=== PATIENT | female | born 1960 | race Caucasian/White ===

== ENCOUNTER 2017-02-06 22:55 | Emergency (ER) | payer MEDICAID ==
[~2017-02-06] VITALS: Ht 165.1 cm; Wt 57.6 kg
[2017-02-06] MEDS ORDERED: SODIUM CHLORIDE 0.9% 1,000ML IVBOLUS ONE (23:30)
[2017-02-06 23:38] LABS: HEMOGLOBIN 16.1 g/dL (11.7-16.4)
[2017-02-06 23:50] LABS: BLOOD UREA NITROGEN 17 mg/dL (7-18)
[2017-02-06 23:55] LABS: IS PT STATUS REG ER OR PRE ER? YES
[2017-02-07 01:10] VITALS: BP 134/78
== END 2017-02-07 01:23 | disposition home or self-care (01) ==
LOC: ED 23:59
DX: J44.1 Chronic obstructive pulmonary disease with (acute) exacerbation (principal); R06.00 Dyspnea, unspecified; F10.129 Alcohol abuse with intoxication, unspecified
CPT/HCPCS: 36415; 71010; 80048; 80307; 82040; 83880; 84484; 85025; 93005; 96360; 96361; 99285; J7030

== ENCOUNTER 2018-02-13 12:06 | Emergency (ER) | payer MEDICAID ==
[~2018-02-13] VITALS: Ht 165.1 cm; Wt 54.4 kg
[2018-02-13 12:42] LABS: MEAN CORPUSCULAR HGB CONC 34.6 g/dL (32.4-35.8); MEAN CORPUSCULAR VOLUME 118.5 fL (80-100); PLATELET COUNT 234 x10^3/uL (130-400); RED BLOOD COUNT 2.65 x10^6/uL (3.82-5.3); RED CELL DISTRIBUTION WIDTH 15.9 % (9.6-15.2)
[2018-02-13 12:48] LABS: MD YES
[2018-02-13 12:49] LABS: ALANINE AMINOTRANSFERASE 54 U/L (12-78); ALBUMIN 2.1 g/dL (3.4-5.0); ANION GAP 9 mmol/L (5-15); CHLORIDE 92 mmol/L (98-107); CREATININE 0.82 mg/dL (0.55-1.02)
[2018-02-13 12:52] LABS: TROPONIN I < 0.015 ng/mL (0.000-0.045)
[2018-02-13 12:54] LABS: ALKALINE PHOSPHATASE 217 U/L (45-117); TOTAL PROTEIN 7.1 g/dL (6.4-8.2)
[2018-02-13 13:06] LABS: BAND#(MANUAL) 3.42 x10^3/uL; BANDS%(MANUAL) 18 % (0-7); BASOS#(MANUAL) 0.19 x10^3/uL (0-0.1); BASOS% (MANUAL) 1 % (0-1); LYMPH#(MANUAL) 2.85 x10^3/uL (1-3.4); LYMPHS% (MANUAL) 15 % (22-44); MONOS#(MANUAL) 1.14 x10^3/uL (0.3-2.7); MONOS% (MANUAL) 6 % (2-9); SEGS% (MANUAL) 60 % (42-75)
[2018-02-13 13:10] LABS: <PLATELET ESTIMATE> ADEQUATE; <PLT MORPHOLOGY> NORMAL PLT MORPH; ANISOCYTOSIS 1+; POLYCHROMASIA 1+
[2018-02-13] MEDS ORDERED: PREN-3 PO (13:11)
[2018-02-13] MEDS ORDERED: ERGO500017 PO (13:11)
[2018-02-13 13:47] LABS: MICROSCOPIC INDICATED
[2018-02-13 13:48] LABS: CULTURE INDICATED? YES
[2018-02-13 14:07] LABS: INTERNATIONAL NORMALIZED RATIO 1.33 (0.93-1.1); PROTHROMBIN TIME 13.6 Seconds (9.6-11.5)
[2018-02-13 15:37] VITALS: BP 90/52
[2018-02-13] MEDS ORDERED: OMNIPAQUE 350 MG/ML, 100ML BOTTLE ONE (16:11)
[2018-02-13] MEDS ORDERED: SODIUM CHLORIDE 0.9% 1,000 ML IV ONE (17:24)
[2018-02-13] MEDS ORDERED: SODIUM CHLORIDE FLUSH 10ML SYR IVF PRN (17:30)
[2018-02-13] MEDS ORDERED: CEFTRIAXONE PMX 1GM/50ML 50 ML IVPB ONE (17:30)
== END 2018-02-13 17:39 | disposition home or self-care (01) ==
LOC: ED 16:20 → EDIP 17:24 → UNDOADMIN 17:24 → ED 17:39
DX: K70.31 Alcoholic cirrhosis of liver with ascites (principal); N30.90 Cystitis, unspecified without hematuria; E87.1 Hypo-osmolality and hyponatremia; J44.9 Chronic obstructive pulmonary disease, unspecified; R53.1 Weakness
CPT/HCPCS: 36415; 71046; 74177; 76700; 80053; 81001; 83605; 83690; 83880; 84484; 85025; 85610; 85730; 87040; 87077; 87086; 93005; 99285; Q9967; 87186

== ENCOUNTER 2018-02-26 10:43 | Emergency (ER) | payer MEDICAID ==
[~2018-02-26] VITALS: Ht 165.1 cm; Wt 57.8 kg
[~2018-02-26 10:43] MED LIST: ERGO500017 PO; PREN-3 PO
[2018-02-26] MEDS ORDERED: SODIUM CHLORIDE FLUSH 10ML SYR IVF ONE (12:00)
[2018-02-26 12:09] LABS: CULTURE INDICATED? YES; MICROSCOPIC INDICATED
[2018-02-26 12:17] LABS: MEAN CORPUSCULAR HEMOGLOBIN 38.9 pg (27.0-34.8); MEAN CORPUSCULAR HGB CONC 33.5 g/dL (32.4-35.8); MEAN CORPUSCULAR VOLUME 116.2 fL (80-100); MEAN PLATELET VOLUME 7.4 fL (7.4-10.4); PLATELET COUNT 296 x10^3/uL (130-400); RED BLOOD COUNT 2.83 x10^6/uL (3.82-5.3); RED CELL DISTRIBUTION WIDTH 14.2 % (9.6-15.2)
[2018-02-26 12:23] LABS: INTERNATIONAL NORMALIZED RATIO 1.31 (0.93-1.1); PROTHROMBIN TIME 13.4 Seconds (9.6-11.5)
[2018-02-26 12:30] LABS: ALANINE AMINOTRANSFERASE 37 U/L (12-78); ALBUMIN 2.2 g/dL (3.4-5.0); ANION GAP 8 mmol/L (5-15); CALCIUM 8.5 mg/dL (8.5-10.1); CHLORIDE 103 mmol/L (98-107); CREATININE 0.77 mg/dL (0.55-1.02)
[2018-02-26 12:32] LABS: ALKALINE PHOSPHATASE 184 U/L (45-117); BILIRUBIN,TOTAL 2.4 mg/dL (0.2-1.0); TOTAL PROTEIN 7.4 g/dL (6.4-8.2)
[2018-02-26] MEDS ORDERED: LIDOCAINE-MPF 1%, 5ML ONE (13:14)
[2018-02-26 13:15] LABS: MD YES
[2018-02-26 13:19] LABS: <PLATELET ESTIMATE> ADEQUATE; <PLT MORPHOLOGY> NORMAL PLT MORPH; ANISOCYTOSIS 1+; BAND#(MANUAL) 0.44 x10^3/uL; BANDS%(MANUAL) 2 % (0-7); BASOS#(MANUAL) 0.44 x10^3/uL (0-0.1); BASOS% (MANUAL) 2 % (0-1); LYMPH#(MANUAL) 2.65 x10^3/uL (1-3.4); LYMPHS% (MANUAL) 12 % (22-44); MONOS#(MANUAL) 0.44 x10^3/uL (0.3-2.7); MONOS% (MANUAL) 2 % (2-9); SEG#(MANUAL) 18.12 x10^3/uL (1.8-6.8); SEGS% (MANUAL) 82 % (42-75); TOXIC GRAN 1+
[2018-02-26] MEDS ORDERED: CEFTRIAXONE PMX 1GM/50ML 50 ML ONE (14:14)
[2018-02-26] MEDS ORDERED: SODIUM CHLORIDE 0.9% 1,000ML IVBOLUS ONE (14:30)
[2018-02-26] MEDS ORDERED: CEFTRIAXONE PMX 1GM/50ML 50 ML IVPB ONE (14:30)
[2018-02-26 15:10] VITALS: BP 99/66
[2018-02-26 15:43] LABS: CELLS COUNTED 88
== END 2018-02-26 15:13 | disposition left against medical advice (07) ==
LOC: ED 14:08
DX: R18.8 Other ascites (principal); D72.829 Elevated white blood cell count, unspecified; R65.10 Systemic inflammatory response syndrome (SIRS) of non-infectious origin without acute organ dysfunction; K83.1 Obstruction of bile duct; D68.9 Coagulation defect, unspecified; J44.9 Chronic obstructive pulmonary disease, unspecified; G89.29 Other chronic pain; F17.200 Nicotine dependence, unspecified, uncomplicated
CPT/HCPCS: 36415; 49083; 80053; 81001; 82042; 82140; 83615; 83690; 85025; 85610; 87040; 87070; 87086; 87205; 88112; 88305; 89051; 96365; 99285; J0696; J7030

== ENCOUNTER 2018-03-05 10:05 | Inpatient (IN) | payer MEDICAID ==
[~2018-03-05] VITALS: Ht 165.1 cm; Wt 63.5 kg
[2018-03-05] MEDS ORDERED: SODIUM CHLORIDE FLUSH 10ML SYR IVF ONE (10:30)
[2018-03-05 10:47] LABS: MEAN CORPUSCULAR HEMOGLOBIN 37.7 pg (27.0-34.8); MEAN CORPUSCULAR HGB CONC 33.3 g/dL (32.4-35.8); MEAN CORPUSCULAR VOLUME 113.3 fL (80-100); PLATELET COUNT 343 x10^3/uL (130-400); RED BLOOD COUNT 3.24 x10^6/uL (3.82-5.3); RED CELL DISTRIBUTION WIDTH 14.7 % (9.6-15.2)
[2018-03-05 11:00] LABS: ALANINE AMINOTRANSFERASE 38 U/L (12-78); ALBUMIN 2.3 g/dL (3.4-5.0); ANION GAP 10 mmol/L (5-15); CALCIUM 8.1 mg/dL (8.5-10.1); CHLORIDE 104 mmol/L (98-107); CREATININE 1.03 mg/dL (0.55-1.02)
[2018-03-05 11:02] LABS: ALKALINE PHOSPHATASE 195 U/L (45-117); BILIRUBIN,TOTAL 1.8 mg/dL (0.2-1.0)
[2018-03-05 11:15] LABS: BASOPHILS # (AUTO) 0.04 x10^3/uL (0-0.1); BASOPHILS % (AUTO) 0 % (0-1); EOSINOPHILS # (AUTO) 0.03 x10^3/uL (0-0.4); EOSINOPHILS % (AUTO) 0 % (1-7); LYMPHOCYTES # (AUTO) 2.37 x10^3/uL (1-3.4); LYMPHOCYTES % (AUTO) 14 % (22-44); MD SCAN; MONOCYTES # (AUTO) 0.89 x10^3/uL (0.2-0.8); MONOCYTES % (AUTO) 5 % (2-9); NEUTROPHILS # (AUTO) 14.14 x10^3/uL (1.8-6.8); NEUTROPHILS % (AUTO) 81 % (42-75)
[2018-03-05] MEDS ORDERED: SODIUM CHLORIDE FLUSH 10ML SYR IVF PRN (12:00)
[2018-03-05] MEDS ORDERED: LIDOCAINE-MPF 1%, 5ML ONE (12:13)
[2018-03-05] MEDS ORDERED: ONDANSETRON 2MG/ML, 2ML IVPush PRN (12:30)
[2018-03-05] MEDS ORDERED: DOCUSATE 100 MG CAPSULE PO PRN (12:30)
[2018-03-05] MEDS ORDERED: BISACODYL 10 MG SUPP PR PRN (12:30)
[2018-03-05] MEDS ORDERED: ONDANSETRON ODT 4 MG PO PRN (12:30)
[2018-03-05] MEDS ORDERED: THIAMINE 100MG TABLET PO ONE (12:30)
[2018-03-05] MEDS ORDERED: ENALAPRILAT 1.25 MG/ML, 2ML IVPush PRN (12:30)
[2018-03-05] MEDS ORDERED: LABETALOL 5MG/ML, 20ML IVPush PRN (12:30)
[2018-03-05] MEDS ORDERED: LORazepam 1MG TABLET PO PRN ×3 (13:00)
[2018-03-05] MEDS ORDERED: LORazepam 2 MG/ML, 1ML IV PRN ×5 (13:00)
[2018-03-05 13:50] VITALS: BP 107/73
[2018-03-05 13:52] LABS: CELLS COUNTED 38
[2018-03-05 14:00] VITALS: BP 107/73
[2018-03-05] MEDS: ERGOCALCIFEROL 50,000 UNIT CAPSULE PO SCH (15:46)
[2018-03-05] MEDS: LORazepam 1MG TABLET PO PRN ×2 (15:47→18:38)
[2018-03-05] MEDS: NICOTINE 7 MG/24 HR PATCH.TD24 TD SCH (15:47)
[2018-03-05 18:12] LABS: MICROSCOPIC NOT IND
[2018-03-05 18:14] LABS: CULTURE INDICATED? NO
[2018-03-05 19:12] VITALS: BP 93/63
[2018-03-05] MEDS: BACLOFEN 10 MG TABLET PO SCH (21:42)
[2018-03-05] MEDS: LACTULOSE 10 GM/15 ML UDC PO SCH (21:42)
[2018-03-06] MEDS: LORazepam 1MG TABLET PO PRN ×2 (01:31→09:47)
[2018-03-06 01:32] VITALS: BP 98/64
[2018-03-06 05:08] LABS: MEAN CORPUSCULAR HEMOGLOBIN 37.8 pg (27.0-34.8); MEAN CORPUSCULAR HGB CONC 33.6 g/dL (32.4-35.8); MEAN CORPUSCULAR VOLUME 112.7 fL (80-100); MEAN PLATELET VOLUME 7.1 fL (7.4-10.4); PLATELET COUNT 249 x10^3/uL (130-400); RED BLOOD COUNT 2.68 x10^6/uL (3.82-5.3); RED CELL DISTRIBUTION WIDTH 14.4 % (9.6-15.2)
[2018-03-06 05:21] LABS: CHLORIDE 106 mmol/L (98-107)
[2018-03-06 05:34] LABS: ALANINE AMINOTRANSFERASE 24 U/L (12-78); ALBUMIN 1.6 g/dL (3.4-5.0); ALKALINE PHOSPHATASE 139 U/L (45-117); ANION GAP 8 mmol/L (5-15); BILIRUBIN,TOTAL 1.2 mg/dL (0.2-1.0); CALCIUM 7.4 mg/dL (8.5-10.1); CREATININE 0.64 mg/dL (0.55-1.02); TOTAL PROTEIN 5.7 g/dL (6.4-8.2)
[2018-03-06 05:45] LABS: BASOPHILS # (AUTO) 0.23 x10^3/uL (0-0.1); BASOPHILS % (AUTO) 1 % (0-1); EOSINOPHILS # (AUTO) 0.14 x10^3/uL (0-0.4); EOSINOPHILS % (AUTO) 1 % (1-7); LYMPHOCYTES # (AUTO) 3.21 x10^3/uL (1-3.4); LYMPHOCYTES % (AUTO) 19 % (22-44); MD SCAN; MONOCYTES # (AUTO) 1.71 x10^3/uL (0.2-0.8); MONOCYTES % (AUTO) 10 % (2-9); NEUTROPHILS # (AUTO) 11.73 x10^3/uL (1.8-6.8); NEUTROPHILS % (AUTO) 69 % (42-75)
[2018-03-06 06:50] VITALS: BP 95/60
[2018-03-06] MEDS: CYANOCOBALAMIN 1,000 MCG TABLET PO SCH (09:00)
[2018-03-06] MEDS: LACTULOSE 10 GM/15 ML UDC PO SCH ×2 (09:46→22:06)
[2018-03-06] MEDS: BACLOFEN 10 MG TABLET PO SCH ×2 (09:47→22:06)
[2018-03-06] MEDS: SENNA/DOCUSATE TABLET PO SCH (09:47)
[2018-03-06] MEDS: FOLIC ACID 1 MG TABLET PO SCH (09:47)
[2018-03-06 12:37] LABS: ALBUMIN 1.7 g/dL (3.4-5.0)
[2018-03-06 12:39] LABS: BILIRUBIN,INDIRECT 0.3 mg/dL (0.0-2.0); BILIRUBIN,TOTAL 1.3 mg/dL (0.2-1.0); TOTAL PROTEIN 6.4 g/dL (6.4-8.2)
[2018-03-06 13:29] LABS: FOLATE LEVEL 15.1 ng/mL (3.1-17.5); THYROID STIMULATING HORMONE 11.9 mIU/L (0.358-3.740)
[2018-03-06 14:05] VITALS: BP 89/56
[2018-03-06] MEDS: NICOTINE 7 MG/24 HR PATCH.TD24 TD SCH (14:17)
[2018-03-06] MEDS: LORazepam 0.5MG TABLET PO PRN (18:17)
[2018-03-06 19:01] VITALS: BP 98/62
[2018-03-07 01:39] VITALS: BP 99/64
[2018-03-07 05:16] LABS: MEAN CORPUSCULAR HEMOGLOBIN 37.4 pg (27.0-34.8); MEAN CORPUSCULAR HGB CONC 33.2 g/dL (32.4-35.8); MEAN CORPUSCULAR VOLUME 112.7 fL (80-100); MEAN PLATELET VOLUME 6.9 fL (7.4-10.4); PLATELET COUNT 259 x10^3/uL (130-400); RED BLOOD COUNT 2.83 x10^6/uL (3.82-5.3); RED CELL DISTRIBUTION WIDTH 14.6 % (9.6-15.2)
[2018-03-07 05:25] LABS: ALANINE AMINOTRANSFERASE 24 U/L (12-78); ALBUMIN 1.5 g/dL (3.4-5.0); ANION GAP 9 mmol/L (5-15); CALCIUM 7.5 mg/dL (8.5-10.1); CHLORIDE 106 mmol/L (98-107); CREATININE 0.57 mg/dL (0.55-1.02)
[2018-03-07 05:27] LABS: ALKALINE PHOSPHATASE 130 U/L (45-117); BILIRUBIN,TOTAL 1.4 mg/dL (0.2-1.0); TOTAL PROTEIN 5.7 g/dL (6.4-8.2)
[2018-03-07] MEDS: LORazepam 0.5MG TABLET PO PRN ×4 (05:33→17:59)
[2018-03-07 06:30] LABS: BASOPHILS # (AUTO) 0.02 x10^3/uL (0-0.1); BASOPHILS % (AUTO) 0 % (0-1); EOSINOPHILS % (AUTO) 1 % (1-7); LYMPHOCYTES # (AUTO) 4.04 x10^3/uL (1-3.4); LYMPHOCYTES % (AUTO) 21 % (22-44); MD SCAN; MONOCYTES # (AUTO) 1.79 x10^3/uL (0.2-0.8); MONOCYTES % (AUTO) 9 % (2-9); NEUTROPHILS # (AUTO) 13.11 x10^3/uL (1.8-6.8); NEUTROPHILS % (AUTO) 69 % (42-75)
[2018-03-07 08:07] VITALS: BP 98/67
[2018-03-07] MEDS: SENNA/DOCUSATE TABLET PO SCH (09:00)
[2018-03-07] MEDS: CYANOCOBALAMIN 1,000 MCG TABLET PO SCH (09:00)
[2018-03-07] MEDS: LACTULOSE 10 GM/15 ML UDC PO SCH ×2 (09:00→19:51)
[2018-03-07] MEDS ORDERED: SPIRONOLACTONE 25 MG TABLET PO SCH (09:00)
[2018-03-07] MEDS: FUROSEMIDE 20 MG TABLET PO SCH (10:13)
[2018-03-07] MEDS: MAGNESIUM OXIDE 400 MG TABLET PO SCH (10:13)
[2018-03-07] MEDS: BACLOFEN 10 MG TABLET PO SCH ×2 (10:13→19:51)
[2018-03-07] MEDS: FOLIC ACID 1 MG TABLET PO SCH (10:14)
[2018-03-07] MEDS: NICOTINE 7 MG/24 HR PATCH.TD24 TD SCH (12:15)
[2018-03-07 15:30] VITALS: BP 104/68
[2018-03-07 16:38] LABS: CLOSTRIDIUM DIFFICILE ANTIGEN NEGATIVE; CLOSTRIDIUM DIFFICILE TOXIN NEGATIVE (Negative)
[2018-03-07 19:03] VITALS: BP 108/70
[2018-03-08] MEDS: LORazepam 0.5MG TABLET PO PRN ×2 (00:28→17:08)
[2018-03-08 01:26] VITALS: BP 107/64
[2018-03-08 05:29] LABS: MEAN CORPUSCULAR HEMOGLOBIN 37.7 pg (27.0-34.8); MEAN CORPUSCULAR HGB CONC 33.4 g/dL (32.4-35.8); MEAN CORPUSCULAR VOLUME 112.8 fL (80-100); MEAN PLATELET VOLUME 7.1 fL (7.4-10.4); PLATELET COUNT 267 x10^3/uL (130-400); RED BLOOD COUNT 2.95 x10^6/uL (3.82-5.3); RED CELL DISTRIBUTION WIDTH 14.3 % (9.6-15.2)
[2018-03-08 05:39] LABS: CHLORIDE 101 mmol/L (98-107)
[2018-03-08 05:51] LABS: ALANINE AMINOTRANSFERASE 25 U/L (12-78); ALBUMIN 1.5 g/dL (3.4-5.0); ALKALINE PHOSPHATASE 140 U/L (45-117); ANION GAP 9 mmol/L (5-15); CALCIUM 7.6 mg/dL (8.5-10.1); CREATININE 0.54 mg/dL (0.55-1.02); TOTAL PROTEIN 5.8 g/dL (6.4-8.2)
[2018-03-08 05:52] LABS: MD YES
[2018-03-08 05:54] LABS: BANDS%(MANUAL) 7 % (0-7); LYMPH#(MANUAL) 3.44 x10^3/uL (1-3.4); LYMPHS% (MANUAL) 15 % (22-44); MONOS#(MANUAL) 0.23 x10^3/uL (0.3-2.7); MONOS% (MANUAL) 1 % (2-9); SEG#(MANUAL) 17.63 x10^3/uL (1.8-6.8); SEGS% (MANUAL) 77 % (42-75)
[2018-03-08 05:55] LABS: TOXIC GRAN 1+
[2018-03-08 05:56] LABS: <RBC MORPHOLOGY> NORMAL
[2018-03-08 05:58] LABS: <PLATELET ESTIMATE> ADEQUATE; <PLT MORPHOLOGY> NORMAL PLT MORPH
[2018-03-08] MEDS: LEVOTHYROXINE 25 MCG TABLET PO SCH (06:07)
[2018-03-08 07:20] VITALS: BP 95/65
[2018-03-08] MEDS: VANCOMYCIN 50 MG/ML ORAL SUSP PO SCH ×2 (07:42→12:30)
[2018-03-08] MEDS ORDERED: SPIRONOLACTONE 50 MG TABLET PO SCH (09:00)
[2018-03-08] MEDS: FOLIC ACID 1 MG TABLET PO SCH (09:34)
[2018-03-08] MEDS: BACLOFEN 10 MG TABLET PO SCH ×2 (09:34→21:59)
[2018-03-08] MEDS: FUROSEMIDE 20 MG TABLET PO SCH (09:34)
[2018-03-08] MEDS: MAGNESIUM OXIDE 400 MG TABLET PO SCH (09:34)
[2018-03-08] MEDS: LACTULOSE 10 GM/15 ML UDC PO SCH ×2 (09:34→21:00)
[2018-03-08] MEDS: CYANOCOBALAMIN 1,000 MCG TABLET PO SCH (09:35)
[2018-03-08 12:54] VITALS: BP 100/66
[2018-03-08] MEDS: RIFAXIMIN 200 MG TABLET PO SCH ×2 (17:07→21:59)
[2018-03-08] MEDS: NICOTINE 7 MG/24 HR PATCH.TD24 TD SCH (17:09)
[2018-03-08 19:05] VITALS: BP 95/66
[2018-03-09 00:21] VITALS: BP 95/58
[2018-03-09] MEDS: LEVOTHYROXINE 25 MCG TABLET PO SCH (05:06)
[2018-03-09 05:10] LABS: MEAN CORPUSCULAR HEMOGLOBIN 37.6 pg (27.0-34.8); MEAN CORPUSCULAR HGB CONC 33.4 g/dL (32.4-35.8); MEAN CORPUSCULAR VOLUME 112.5 fL (80-100); MEAN PLATELET VOLUME 7.3 fL (7.4-10.4); PLATELET COUNT 256 x10^3/uL (130-400); RED BLOOD COUNT 2.88 x10^6/uL (3.82-5.3)
[2018-03-09 05:19] LABS: ALBUMIN 1.4 g/dL (3.4-5.0); ANION GAP 9 mmol/L (5-15); CALCIUM 7.7 mg/dL (8.5-10.1); CHLORIDE 99 mmol/L (98-107)
[2018-03-09 05:22] LABS: ALANINE AMINOTRANSFERASE 24 U/L (12-78); ALKALINE PHOSPHATASE 133 U/L (45-117); CREATININE 0.43 mg/dL (0.55-1.02); TOTAL PROTEIN 5.6 g/dL (6.4-8.2)
[2018-03-09 05:54] LABS: BASOPHILS # (AUTO) 0.04 x10^3/uL (0-0.1); BASOPHILS % (AUTO) 0 % (0-1); EOSINOPHILS # (AUTO) 0.06 x10^3/uL (0-0.4); EOSINOPHILS % (AUTO) 0 % (1-7); LYMPHOCYTES # (AUTO) 3.49 x10^3/uL (1-3.4); LYMPHOCYTES % (AUTO) 17 % (22-44); MD SCAN; MONOCYTES % (AUTO) 10 % (2-9); NEUTROPHILS # (AUTO) 15.51 x10^3/uL (1.8-6.8); NEUTROPHILS % (AUTO) 73 % (42-75)
[2018-03-09 08:18] VITALS: BP 96/60
[2018-03-09] MEDS: CYANOCOBALAMIN 1,000 MCG TABLET PO SCH (08:21)
[2018-03-09] MEDS: LACTULOSE 10 GM/15 ML UDC PO SCH ×2 (08:21→22:01)
[2018-03-09] MEDS: FOLIC ACID 1 MG TABLET PO SCH (08:21)
[2018-03-09] MEDS: BACLOFEN 10 MG TABLET PO SCH ×2 (08:21→22:01)
[2018-03-09] MEDS: MAGNESIUM OXIDE 400 MG TABLET PO SCH (08:21)
[2018-03-09] MEDS: FUROSEMIDE 40 MG TABLET PO SCH (08:22)
[2018-03-09] MEDS: RIFAXIMIN 200 MG TABLET PO SCH ×3 (08:25→22:01)
[2018-03-09] MEDS: SPIRONOLACTONE 100 MG TABLET PO SCH (08:26)
[2018-03-09 09:03] LABS: OSMOLALITY,URINE 249 mOsm/kg (500-850)
[2018-03-09 12:50] VITALS: BP 114/76
[2018-03-09 16:13] LABS: ALBUMIN 1.7 g/dL (3.4-5.0); BILIRUBIN, DIRECT 0.8 mg/dL (0.1-0.2)
[2018-03-09 16:15] LABS: BILIRUBIN,INDIRECT 0.2 mg/dL (0.0-2.0); TOTAL PROTEIN 6.3 g/dL (6.4-8.2)
[2018-03-09] MEDS: ZIPRASIDONE 20MG CAPSULE PO SCH ×2 (16:18→16:20)
[2018-03-09] MEDS: NICOTINE 7 MG/24 HR PATCH.TD24 TD SCH (16:19)
[2018-03-09 19:22] VITALS: BP 102/65
[2018-03-10 02:25] VITALS: BP 98/63
[2018-03-10 04:57] LABS: MEAN CORPUSCULAR HEMOGLOBIN 37.5 pg (27.0-34.8); MEAN CORPUSCULAR HGB CONC 33.6 g/dL (32.4-35.8); MEAN CORPUSCULAR VOLUME 111.6 fL (80-100); MEAN PLATELET VOLUME 7.2 fL (7.4-10.4); PLATELET COUNT 273 x10^3/uL (130-400); RED BLOOD COUNT 2.84 x10^6/uL (3.82-5.3); RED CELL DISTRIBUTION WIDTH 13.8 % (9.6-15.2)
[2018-03-10 05:07] LABS: CHLORIDE 98 mmol/L (98-107)
[2018-03-10 05:17] LABS: ALANINE AMINOTRANSFERASE 27 U/L (12-78); ALBUMIN 1.6 g/dL (3.4-5.0); ALKALINE PHOSPHATASE 140 U/L (45-117); ANION GAP 8 mmol/L (5-15); BILIRUBIN,TOTAL 1.2 mg/dL (0.2-1.0); CALCIUM 7.7 mg/dL (8.5-10.1); CREATININE 0.49 mg/dL (0.55-1.02); TOTAL PROTEIN 5.9 g/dL (6.4-8.2)
[2018-03-10 05:51] LABS: MD YES
[2018-03-10 05:53] LABS: BAND#(MANUAL) 3.25 x10^3/uL; BANDS%(MANUAL) 13 % (0-7); EOS#(MANUAL) 0.75 x10^3/uL (0.0-0.4); EOS% (MANUAL) 3 % (1-7); LYMPHS% (MANUAL) 24 % (22-44); METAMYELOCYTES# (MANUAL) 0.25 x10^3/uL (0-0); METAMYELOCYTES% (MANUAL) 1 % (0-1); MONOS#(MANUAL) 2.25 x10^3/uL (0.3-2.7); MONOS% (MANUAL) 9 % (2-9); SEGS% (MANUAL) 50 % (42-75)
[2018-03-10] MEDS: LEVOTHYROXINE 25 MCG TABLET PO SCH (05:53)
[2018-03-10 05:55] LABS: <PLATELET ESTIMATE> ADEQUATE; <PLT MORPHOLOGY> NORMAL PLT MORPH
[2018-03-10 07:05] VITALS: BP 96/60
[2018-03-10] MEDS: ZIPRASIDONE 20MG CAPSULE PO SCH ×2 (08:00→17:43)
[2018-03-10] MEDS: FOLIC ACID 1 MG TABLET PO SCH (08:52)
[2018-03-10] MEDS: LACTULOSE 10 GM/15 ML UDC PO SCH ×2 (08:52→20:13)
[2018-03-10] MEDS: SPIRONOLACTONE 100 MG TABLET PO SCH (08:52)
[2018-03-10] MEDS: MAGNESIUM OXIDE 400 MG TABLET PO SCH (08:52)
[2018-03-10] MEDS: RIFAXIMIN 200 MG TABLET PO SCH ×3 (08:52→20:13)
[2018-03-10] MEDS: FUROSEMIDE 40 MG TABLET PO SCH (08:52)
[2018-03-10] MEDS: CYANOCOBALAMIN 1,000 MCG TABLET PO SCH (08:53)
[2018-03-10 08:57] LABS: MICROSCOPIC INDICATED
[2018-03-10 12:50] VITALS: BP 99/66
[2018-03-10] MEDS: NICOTINE 7 MG/24 HR PATCH.TD24 TD SCH (14:24)
[2018-03-10 19:31] VITALS: BP 99/66
[2018-03-11 01:18] VITALS: BP 97/53
[2018-03-11] MEDS: LEVOTHYROXINE 25 MCG TABLET PO SCH (06:07)
[2018-03-11 06:13] LABS: MEAN CORPUSCULAR HEMOGLOBIN 37.7 pg (27.0-34.8); MEAN CORPUSCULAR HGB CONC 33.7 g/dL (32.4-35.8); MEAN CORPUSCULAR VOLUME 111.9 fL (80-100); MEAN PLATELET VOLUME 7.5 fL (7.4-10.4); PLATELET COUNT 257 x10^3/uL (130-400); RED BLOOD COUNT 2.67 x10^6/uL (3.82-5.3)
[2018-03-11 06:21] LABS: ALBUMIN 1.5 g/dL (3.4-5.0); ANION GAP 10 mmol/L (5-15); CALCIUM 7.9 mg/dL (8.5-10.1); CHLORIDE 98 mmol/L (98-107)
[2018-03-11 06:24] LABS: ALANINE AMINOTRANSFERASE 29 U/L (12-78); ALKALINE PHOSPHATASE 133 U/L (45-117); CREATININE 0.49 mg/dL (0.55-1.02); TOTAL PROTEIN 5.7 g/dL (6.4-8.2)
[2018-03-11 06:55] VITALS: BP 112/75
[2018-03-11 07:32] LABS: MD YES
[2018-03-11 07:33] LABS: <PLATELET ESTIMATE> ADEQUATE; <PLT MORPHOLOGY> NORMAL PLT MORPH; BAND#(MANUAL) 2.59 x10^3/uL; BANDS%(MANUAL) 10 % (0-7); EOS#(MANUAL) 0.78 x10^3/uL (0.0-0.4); EOS% (MANUAL) 3 % (1-7); LYMPH#(MANUAL) 4.14 x10^3/uL (1-3.4); LYMPHS% (MANUAL) 16 % (22-44); METAMYELOCYTES# (MANUAL) 0.26 x10^3/uL (0-0); METAMYELOCYTES% (MANUAL) 1 % (0-1); MONOS#(MANUAL) 2.59 x10^3/uL (0.3-2.7); MONOS% (MANUAL) 10 % (2-9); SEG#(MANUAL) 15.54 x10^3/uL (1.8-6.8); SEGS% (MANUAL) 60 % (42-75)
[2018-03-11] MEDS: SPIRONOLACTONE 100 MG TABLET PO SCH (09:00)
[2018-03-11] MEDS: LACTULOSE 10 GM/15 ML UDC PO SCH ×2 (10:17→20:49)
[2018-03-11] MEDS: CYANOCOBALAMIN 1,000 MCG TABLET PO SCH (10:17)
[2018-03-11] MEDS: FOLIC ACID 1 MG TABLET PO SCH (10:18)
[2018-03-11] MEDS: MAGNESIUM OXIDE 400 MG TABLET PO SCH (10:18)
[2018-03-11] MEDS: ZIPRASIDONE 20MG CAPSULE PO SCH ×2 (10:18→17:50)
[2018-03-11] MEDS: RIFAXIMIN 200 MG TABLET PO SCH ×3 (10:19→20:49)
[2018-03-11] MEDS: NICOTINE 7 MG/24 HR PATCH.TD24 TD SCH (13:58)
[2018-03-11 14:20] VITALS: BP 127/83
[2018-03-11 19:06] VITALS: BP 109/63
[2018-03-11] MEDS: OXYcodone IR 5MG TABLET PO PRN (20:49)
[2018-03-12 01:17] VITALS: BP 108/59
[2018-03-12] MEDS: LEVOTHYROXINE 25 MCG TABLET PO SCH (06:14)
[2018-03-12] MEDS: LACTULOSE 10 GM/15 ML UDC PO SCH ×2 (08:21→20:24)
[2018-03-12] MEDS: FUROSEMIDE 80 MG TABLET PO SCH (08:22)
[2018-03-12] MEDS: SPIRONOLACTONE 100 MG TABLET PO SCH (08:22)
[2018-03-12] MEDS: MAGNESIUM OXIDE 400 MG TABLET PO SCH (08:22)
[2018-03-12] MEDS: RIFAXIMIN 200 MG TABLET PO SCH ×3 (08:22→20:24)
[2018-03-12] MEDS: CYANOCOBALAMIN 1,000 MCG TABLET PO SCH (08:22)
[2018-03-12] MEDS: FOLIC ACID 1 MG TABLET PO SCH (08:23)
[2018-03-12] MEDS: ZIPRASIDONE 20MG CAPSULE PO SCH ×2 (08:23→16:35)
[2018-03-12 08:25] VITALS: BP 105/66
[2018-03-12] MEDS: OXYcodone IR 5MG TABLET PO PRN ×2 (08:35→20:34)
[2018-03-12] MEDS ORDERED: FUROSEMIDE 20 MG TABLET PO SCH (09:00)
[2018-03-12 09:03] LABS: MD YES; MEAN CORPUSCULAR HEMOGLOBIN 36.6 pg (27.0-34.8); MEAN CORPUSCULAR HGB CONC 33.4 g/dL (32.4-35.8); MEAN CORPUSCULAR VOLUME 109.6 fL (80-100); MEAN PLATELET VOLUME 7.1 fL (7.4-10.4); PLATELET COUNT 319 x10^3/uL (130-400); RED BLOOD COUNT 2.85 x10^6/uL (3.82-5.3); RED CELL DISTRIBUTION WIDTH 13.7 % (9.6-15.2)
[2018-03-12 09:09] LABS: ALANINE AMINOTRANSFERASE 36 U/L (12-78); ALBUMIN 1.7 g/dL (3.4-5.0); ANION GAP 9 mmol/L (5-15); CALCIUM 7.6 mg/dL (8.5-10.1); CHLORIDE 94 mmol/L (98-107); CREATININE 0.64 mg/dL (0.55-1.02)
[2018-03-12 09:11] LABS: ALKALINE PHOSPHATASE 145 U/L (45-117); BILIRUBIN,TOTAL 1.3 mg/dL (0.2-1.0); TOTAL PROTEIN 6.4 g/dL (6.4-8.2)
[2018-03-12 09:49] LABS: BAND#(MANUAL) 2.51 x10^3/uL; BANDS%(MANUAL) 10 % (0-7); LYMPH#(MANUAL) 5.02 x10^3/uL (1-3.4); LYMPHS% (MANUAL) 20 % (22-44); MONOS% (MANUAL) 4 % (2-9); SEG#(MANUAL) 16.57 x10^3/uL (1.8-6.8); SEGS% (MANUAL) 66 % (42-75)
[2018-03-12 09:52] LABS: <PLATELET ESTIMATE> ADEQUATE; <PLT MORPHOLOGY> NORMAL PLT MORPH
[2018-03-12] MEDS ORDERED: LIDOCAINE-MPF 1%, 5ML ONE ×2 (11:43)
[2018-03-12] MEDS: NICOTINE 7 MG/24 HR PATCH.TD24 TD SCH (13:10)
[2018-03-12] MEDS: ERGOCALCIFEROL 50,000 UNIT CAPSULE PO SCH (13:10)
[2018-03-12 14:12] VITALS: BP 108/64
[2018-03-12 18:43] VITALS: BP 105/69
[2018-03-13 02:10] VITALS: BP 93/58
[2018-03-13] MEDS: LEVOTHYROXINE 25 MCG TABLET PO SCH (05:52)
[2018-03-13 06:45] VITALS: BP 103/68
[2018-03-13 07:31] LABS: MEAN CORPUSCULAR HEMOGLOBIN 36.7 pg (27.0-34.8); MEAN CORPUSCULAR HGB CONC 33.6 g/dL (32.4-35.8); MEAN CORPUSCULAR VOLUME 109.3 fL (80-100); MEAN PLATELET VOLUME 6.7 fL (7.4-10.4); PLATELET COUNT 304 x10^3/uL (130-400); RED BLOOD COUNT 2.81 x10^6/uL (3.82-5.3); RED CELL DISTRIBUTION WIDTH 13.7 % (9.6-15.2)
[2018-03-13 07:37] LABS: ALANINE AMINOTRANSFERASE 36 U/L (12-78); ALBUMIN 1.7 g/dL (3.4-5.0); ANION GAP 9 mmol/L (5-15); CALCIUM 7.7 mg/dL (8.5-10.1); CHLORIDE 96 mmol/L (98-107); CREATININE 0.59 mg/dL (0.55-1.02)
[2018-03-13 07:39] LABS: ALKALINE PHOSPHATASE 136 U/L (45-117); BILIRUBIN,TOTAL 1.1 mg/dL (0.2-1.0); TOTAL PROTEIN 6.2 g/dL (6.4-8.2)
[2018-03-13 07:46] LABS: MD YES
[2018-03-13 08:09] LABS: BAND#(MANUAL) 0.49 x10^3/uL; BANDS%(MANUAL) 2 % (0-7); BASOS#(MANUAL) 0.25 x10^3/uL (0-0.1); BASOS% (MANUAL) 1 % (0-1); EOS#(MANUAL) 0.25 x10^3/uL (0.0-0.4); EOS% (MANUAL) 1 % (1-7); LYMPH#(MANUAL) 3.71 x10^3/uL (1-3.4); LYMPHS% (MANUAL) 15 % (22-44); MONOS#(MANUAL) 2.22 x10^3/uL (0.3-2.7); MONOS% (MANUAL) 9 % (2-9); SEG#(MANUAL) 17.78 x10^3/uL (1.8-6.8); SEGS% (MANUAL) 72 % (42-75)
[2018-03-13 08:11] LABS: <PLATELET ESTIMATE> ADEQUATE; <PLT MORPHOLOGY> NORMAL PLT MORPH
[2018-03-13] MEDS: LACTULOSE 10 GM/15 ML UDC PO SCH (08:43)
[2018-03-13] MEDS: MAGNESIUM OXIDE 400 MG TABLET PO SCH (08:44)
[2018-03-13] MEDS: RIFAXIMIN 200 MG TABLET PO SCH (08:44)
[2018-03-13] MEDS: FUROSEMIDE 80 MG TABLET PO SCH (08:44)
[2018-03-13] MEDS: SPIRONOLACTONE 100 MG TABLET PO SCH (08:44)
[2018-03-13] MEDS: ZIPRASIDONE 20MG CAPSULE PO SCH (08:45)
[2018-03-13] MEDS: CYANOCOBALAMIN 1,000 MCG TABLET PO SCH (08:45)
[2018-03-13] MEDS: FOLIC ACID 1 MG TABLET PO SCH (08:49)
[2018-03-13] MEDS: OXYcodone IR 5MG TABLET PO PRN (08:53)
[2018-03-13] MEDS ORDERED: FURO80TA3 PO (10:14)
[2018-03-13] MEDS ORDERED: LEVO25TA2 PO (10:14)
[2018-03-13] MEDS ORDERED: SPIR100T PO (10:14)
[2018-03-13] MEDS ORDERED: MAGN400T26 PO (10:14)
[2018-03-13] MEDS ORDERED: FOLI-17 PO (10:14)
[2018-03-13] MEDS ORDERED: ERGO500017 PO (10:14)
[2018-03-13] MEDS ORDERED: CYAN10005 PO (10:14)
[2018-03-13 12:13] VITALS: BP 98/53
[2018-03-13 12:40] VITALS: BP 96/55
[2018-03-13] MEDS: NICOTINE 7 MG/24 HR PATCH.TD24 TD SCH (13:23)
[2018-03-13] MEDS ORDERED: ZIPRASIDONE 20MG CAPSULE PO SCH (17:00)
[2018-03-13] MEDS ORDERED: ZIPR40CA2 PO (17:11)
== END 2018-03-13 13:54 | disposition home or self-care (01) | DRG 441 ==
LOC: ED 12:07 → EDIP 12:39 → 3NE 12:39 → DCLOUNGE 03-13 13:40
PROVIDERS: ADMIT Internal Medicine Pulmonary Disease; ATTEND Internal Medicine Pulmonary Disease
PROC: 0W9G3ZZ Drainage of Peritoneal Cavity, Percutaneous Approach (ICD-10-PCS; principal; 2018-03-05)
PROC: 0W9G3ZZ Drainage of Peritoneal Cavity, Percutaneous Approach (ICD-10-PCS; 2018-03-12)
DX: K72.90 Hepatic failure, unspecified without coma (principal); G93.41 Metabolic encephalopathy; K85.20 Alcohol induced acute pancreatitis without necrosis or infection; N17.9 Acute kidney failure, unspecified; E44.0 Moderate protein-calorie malnutrition; E87.1 Hypo-osmolality and hyponatremia; F10.239 Alcohol dependence with withdrawal, unspecified; N39.0 Urinary tract infection, site not specified; K70.11 Alcoholic hepatitis with ascites; K70.31 Alcoholic cirrhosis of liver with ascites; D50.9 Iron deficiency anemia, unspecified; F03.90 Unspecified dementia, unspecified severity, without behavioral disturbance, psychotic disturbance, mood disturbance, and anxiety; E83.42 Hypomagnesemia; D53.9 Nutritional anemia, unspecified; E03.9 Hypothyroidism, unspecified; E87.70 Fluid overload, unspecified; F09 Unspecified mental disorder due to known physiological condition; F17.210 Nicotine dependence, cigarettes, uncomplicated; F31.9 Bipolar disorder, unspecified; G47.00 Insomnia, unspecified; J44.9 Chronic obstructive pulmonary disease, unspecified; K76.0 Fatty (change of) liver, not elsewhere classified; Z87.440 Personal history of urinary (tract) infections; Z81.1 Family history of alcohol abuse and dependence; Z68.23 Body mass index [BMI] 23.0-23.9, adult
CPT/HCPCS: 36415; 49083; 71045; 76700; 80053; 80076; 80307; 81001; 81003; 82042; 82140; 82607; 82746; 82945; 83036; 83615; 83690; 83735; 83930; 83935; 84100; 84439; 84443; 85025; 86704; 86706; 86708; 86803; 87040; 87070; 87086; 87116; 87205; 87206; 87324; 87340; 88112; 88305; 89051; 93308; 99285; J3370; 92523-GN

== ENCOUNTER 2018-03-16 10:16 | Emergency (ER) | payer MEDICAID ==
[~2018-03-16] VITALS: Ht 165.1 cm; Wt 56.0 kg
[~2018-03-16 10:16] MED LIST changes: +CYAN10005 PO; +FOLI-17 PO; +FURO80TA3 PO; +LEVO25TA2 PO; +MAGN400T26 PO; +SPIR100T PO; +ZIPR40CA2 PO
[2018-03-16 10:45] VITALS: BP 130/67
[2018-03-16] MEDS ORDERED: LORazepam 1MG TABLET ONE (10:56)
[2018-03-16] MEDS ORDERED: LORazepam 1MG TABLET PO ONE (11:00)
== END 2018-03-16 11:18 | disposition home or self-care (01) ==
LOC: ED 10:58
DX: F41.1 Generalized anxiety disorder (principal); G89.29 Other chronic pain; J44.9 Chronic obstructive pulmonary disease, unspecified
CPT/HCPCS: 99283

== ENCOUNTER → 2018-04-26 | Outpatient (CLI) | payer MEDICAID ==
[~2018-04-26] MED LIST changes: +LIDOCAINE-MPF 2% ,5ML ONE
== END | disposition home or self-care (01) ==
LOC: RAD 13:27
PROVIDERS: ATTEND Family Medicine Adult Medicine
DX: K74.60 Unspecified cirrhosis of liver (principal)
CPT/HCPCS: 49083; J3490

== ENCOUNTER → 2018-08-01 | Outpatient (CLI) | payer MEDICAID ==
[~2018-08-01] MED LIST changes: -LIDOCAINE-MPF 2% ,5ML ONE; +LIDOCAINE-MPF 2%, 2ML ONE
== END | disposition home or self-care (01) ==
LOC: RAD 09:47
PROVIDERS: ATTEND Family Medicine Adult Medicine
DX: K74.60 Unspecified cirrhosis of liver (principal)
CPT/HCPCS: 49083; J3490

== ENCOUNTER 2018-10-04 07:49 | Day surgery (SDC) | payer MEDICAID ==
[~2018-10-04] VITALS: Ht 161.3 cm; Wt 61.6 kg
[~2018-10-04 07:49] MED LIST changes: -LIDOCAINE-MPF 2%, 2ML ONE
[2018-10-04 08:26] VITALS: BP 122/76
[2018-10-04] MEDS ORDERED: SODIUM CHLORIDE 0.9% 1,000 ML IV SCH (08:30)
[2018-10-04 08:54] LABS: INTERNATIONAL NORMALIZED RATIO 1.18 (0.93-1.1); PROTHROMBIN TIME 12.4 Seconds (9.6-11.5)
[2018-10-04] MEDS ORDERED: LIDOCAINE-MPF 1%, 5ML ONE (09:46)
[2018-10-04] MEDS ORDERED: FLUMAZENIL 0.1 MG/1 ML, 5ML ONE (10:40)
[2018-10-04] MEDS ORDERED: MIDAZOLAM 1 MG/ML, 5ML ONE (10:40)
[2018-10-04] MEDS ORDERED: NALOXONE 1 MG/ML, 2ML ONE (10:40)
[2018-10-04] MEDS ORDERED: FENTANYL PF 100 MCG/2ML ONE (10:40)
== END 2018-10-04 13:25 | disposition home or self-care (01) ==
LOC: OUT 07:49
PROVIDERS: ATTEND Internal Medicine Gastroenterology
DX: K74.0 Hepatic fibrosis (principal); F41.9 Anxiety disorder, unspecified; F32.9 Major depressive disorder, single episode, unspecified; K21.9 Gastro-esophageal reflux disease without esophagitis; E03.9 Hypothyroidism, unspecified; Z79.899 Other long term (current) drug therapy; Z98.890 Other specified postprocedural states; Z98.51 Tubal ligation status
CPT/HCPCS: 36415; 47000; 76942; 85610; 88307; 88313; 99156; 99157; J2250; J3010; J7030; J2310

== ENCOUNTER → 2018-11-30 | Outpatient (CLI) | payer MEDICAID | END | disposition home or self-care (01) | LOC: RAD 11:24 | PROVIDERS: ATTEND Family Medicine Adult Medicine | DX: K74.0 Hepatic fibrosis (principal); F41.9 Anxiety disorder, unspecified; F32.9 Major depressive disorder, single episode, unspecified; K21.9 Gastro-esophageal reflux disease without esophagitis; E03.9 Hypothyroidism, unspecified; F17.210 Nicotine dependence, cigarettes, uncomplicated; Z87.440 Personal history of urinary (tract) infections; Z98.890 Other specified postprocedural states; Z98.51 Tubal ligation status | CPT/HCPCS: 49083 ==

== ENCOUNTER 2019-04-09 10:13 | Outpatient (CLI) | payer MEDICAID ==
[2019-04-09] MEDS ORDERED: LIDOCAINE-MPF 1%, 5ML ONE (10:29)
== END 2019-04-09 23:59 | disposition home or self-care (01) ==
LOC: RAD 10:13
PROVIDERS: ATTEND Family Medicine Adult Medicine
DX: K74.60 Unspecified cirrhosis of liver (principal)
CPT/HCPCS: 49083

== ENCOUNTER 2019-09-14 14:24 | Emergency (ER) | payer MEDICAID ==
[~2019-09-14] VITALS: Ht 162.6 cm; Wt 69.8 kg
[~2019-09-14 14:24] MED LIST changes: +CYAN-27 PO; -CYAN10005 PO
--- NOTE | 2019-09-14 15:01 | NUR ---
DIRECTOR OF CUSTOMER SERVICE: [id number]
[2019-09-14 15:07] VITALS: BP 120/80
--- NOTE | 2019-09-14 15:51 | NUR ---
PT AMBULATORY WITH STEADY GAIT FROM LOBBY TO TRIAGE.
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
== END 2019-09-14 16:08 | disposition home or self-care (01) ==
LOC: ED 16:02
DX: L03.113 Cellulitis of right upper limb (principal); J44.9 Chronic obstructive pulmonary disease, unspecified; K74.60 Unspecified cirrhosis of liver; F17.210 Nicotine dependence, cigarettes, uncomplicated
CPT/HCPCS: 99283

== ENCOUNTER 2020-07-17 09:49 | Inpatient (IN) | payer MEDICAID ==
[~2020-07-17] VITALS: Ht 162.6 cm; Wt 78.2 kg
[2020-07-17] MEDS ORDERED: SODIUM CHLORIDE 0.9% 1,000 ML IV ONE (09:59)
[2020-07-17] MEDS ORDERED: PANTOPRAZOLE 80 MG in SODIUM CHLORIDE 0.9% 50 ML IVPB ONE (09:59)
[2020-07-17] MEDS ORDERED: SODIUM CHLORIDE FLUSH 10ML SYR IVF ONE (10:00)
[2020-07-17] MEDS ORDERED: CEFTRIAXONE PMX 1GM/50ML 50 ML IV ONE (10:00)
[2020-07-17] MEDS ORDERED: ONDANSETRON 2MG/ML, 2ML IVPush ONE (10:00)
[2020-07-17] MEDS ORDERED: LORazepam 2 MG/ML, 1ML IV ONE (10:00)
[2020-07-17] MEDS ORDERED: OCTREOTIDE 100MCG/ML, 1ML (0.1MG/ML) IV ONE (10:00)
--- NOTE | 2020-07-17 10:25 | NUR ---
PT PLACED ON ALL ROOM MONITORING. PT A/O X PERSON AND SX. +INTOXICATION, UNABLE TO ANSWER SOME QUESTIONS ACCURATELY, FOLLOWS MOST COMMANDS. PT DENIES DRUGS. IV PLACED-UNABLE TO DRAW LABS. LAB IN TO DRAW. CALL LIGHT WITHIN REACH.
[2020-07-17] MEDS ORDERED: LORazepam 2 MG/ML, 1ML ONE (10:28)
[2020-07-17] MEDS ORDERED: ONDANSETRON 2MG/ML, 2ML ONE ×2 (10:29→14:54)
[2020-07-17] MEDS ORDERED: MORPHINE SULFATE 4 MG/ML, 1ML ONE ×2 (10:29→14:54)
[2020-07-17] MEDS: PANTOPRAZOLE 80 MG in SODIUM CHLORIDE 0.9% 100 ML IV SCH ×4 (10:40→19:15)
[2020-07-17] MEDS: MORPHINE SULFATE 4 MG/ML, 1ML IVPush PRN ×2 (10:41→15:00)
[2020-07-17] MEDS ORDERED: OCTREOTIDE 100MCG/ML, 1ML (0.1MG/ML) ONE (10:44)
[2020-07-17] MEDS ORDERED: CEFTRIAXONE PMX 1GM/50ML 50 ML ONE (10:44)
[2020-07-17 10:49] LABS: INTERNATIONAL NORMALIZED RATIO 1.11 (0.93-1.1); PROTHROMBIN TIME 11.4 Seconds (9.6-11.5)
[2020-07-17] MEDS: OCTREOTIDE 500 MCG in SODIUM CHLORIDE 0.9% 99 ML IV PRN ×3 (10:58→18:47)
--- NOTE | 2020-07-17 11:07 | NUR ---
IV X 2 ESTABLISHED. MEDS GIVEN PER ERP ORDER. PT WITH SOME DESATURATION TO 85% RA FOLLOWING MORPHINE AND ATIVAN. OXYGEN PLACED AT 2LITERS VIA NC. CALL LIGHT WITHIN REACH. PT UPDATED ON POC. CALL LIGHT WITHIN REACH.
[2020-07-17 11:12] LABS: CHLORIDE 100 mmol/L (98-107)
[2020-07-17 11:21] LABS: ALANINE AMINOTRANSFERASE 36 U/L (12-78); ALBUMIN 4.1 g/dL (3.4-5.0); ALKALINE PHOSPHATASE 130 U/L (45-117); ANION GAP 13 mmol/L (5-15); BILIRUBIN,TOTAL 0.7 mg/dL (0.2-1.0); CALCIUM 8.9 mg/dL (8.5-10.1); CREATININE 1.22 mg/dL (0.55-1.02); TOTAL PROTEIN 9.1 g/dL (6.4-8.2)
--- NOTE | 2020-07-17 11:31 | NUR ---
LAB IN TO REDRAW CBC
--- NOTE | 2020-07-17 11:35 | NUR ---
PT STATES PAIN TO L TOP OF HEAD, SAYS "I MUST HAVE FALLEN LAST NIGHT". NO VISIBLE WOUND OR HEMATOMA BUT PT VERY TENDER TO THAT AREA WITH TOUCH. ERP NOTIFIED. ADD ON CT HEAD.
--- NOTE | 2020-07-17 11:54 | NUR ---
CT ON HOLD; ONE ROOM DOWN; CODE NEURO TO BE DONE FIRST
--- NOTE | 2020-07-17 11:54 | NUR ---
PT APPEARS COMFORTABLE, NO N/V/D SINCE ARRIVAL TO ED. ORDER FOR ADMIT NOTED. UNABLE TO VERIFY PT'S MEDICATIONS, PT UNABLE TO RECALL NAMES OR DOSES OF MEDS. VSS/UPDATED IN COMPUTER, CALL LIGHT WITHIN REACH.
[2020-07-17 11:56] LABS: MEAN CORPUSCULAR HEMOGLOBIN 30.9 pg (27.0-34.8); MEAN CORPUSCULAR HGB CONC 33.5 g/dL (32.4-35.8); MEAN CORPUSCULAR VOLUME 92.2 fL (80-100); MEAN PLATELET VOLUME 7.1 fL (7.4-10.4); PLATELET COUNT 232 x10^3/uL (130-400); RED BLOOD COUNT 5.34 x10^6/uL (3.82-5.3); RED CELL DISTRIBUTION WIDTH 14.4 % (9.6-15.2)
[2020-07-17 12:31] LABS: BASOPHILS # (AUTO) 0.04 x10^3/uL (0-0.1); BASOPHILS % (AUTO) 0 % (0-1); EOSINOPHILS % (AUTO) 0 % (1-7); LYMPHOCYTES # (AUTO) 4.74 x10^3/uL (1-3.4); LYMPHOCYTES % (AUTO) 28 % (22-44); MD SCAN; MONOCYTES # (AUTO) 1.49 x10^3/uL (0.2-0.8); MONOCYTES % (AUTO) 9 % (2-9); NEUTROPHILS # (AUTO) 10.79 x10^3/uL (1.8-6.8); NEUTROPHILS % (AUTO) 63 % (42-75)
--- NOTE | 2020-07-17 12:32 | NUR ---
[facility] IN TO SEE PT.
--- NOTE | 2020-07-17 12:45 | NUR ---
PT TO CT.
[2020-07-17] MEDS ORDERED: BISACODYL 10 MG SUPP PR PRN (13:30)
[2020-07-17] MEDS ORDERED: ONDANSETRON ODT 4 MG PO PRN (13:30)
[2020-07-17] MEDS ORDERED: LABETALOL 5MG/ML, 20ML IVPush PRN (13:30)
[2020-07-17] MEDS ORDERED: DOCUSATE 100 MG CAPSULE PO PRN (13:30)
[2020-07-17] MEDS ORDERED: ONDANSETRON 2MG/ML, 2ML IVPush PRN (13:30)
[2020-07-17] MEDS ORDERED: hydrALAzine 20 MG/ML, 1ML IVPush PRN (13:30)
[2020-07-17] MEDS ORDERED: morphine SULFATE 10 MG/ML, 1ML IVPush PRN (13:30)
--- NOTE | 2020-07-17 13:50 | NUR ---
PT RACKMAN LIGHT FREQUENTLY ASKING FOR WATER. PT INFORMED OF NPO STATUS. US IN TO SEE PT. CONTINUE TO AWAIT ADMIT BED.
--- NOTE | 2020-07-17 14:35 | NUR ---
PT BACK FROM RADIOLOGY. VSS/UPDATED IN COMPUTER. LEMON GLYCERIN SWAB PROVIDED.
--- NOTE | 2020-07-17 15:00 | NUR ---
PT C/O SHAKES AND NAUSEA AFTER GETTING UP TO BR. PT MEDICATED PER EMAR. PT "FEELING BETTER" AT THIS TIME. CALL LIGHT WITHIN REACH.
--- NOTE | 2020-07-17 15:33 | NUR ---
PT SLEEPING, NAD.
[2020-07-17 16:55] VITALS: BP 142/66
[2020-07-17] MEDS ORDERED: LORazepam 1MG TABLET PO PRN ×4 (18:00)
[2020-07-17] MEDS ORDERED: LORazepam 2 MG/ML, 1ML IV PRN ×5 (18:00)
[2020-07-17] MEDS ORDERED: LORazepam 0.5MG TABLET PO PRN (18:00)
[2020-07-17] MEDS: OCTREOTIDE 500 MCG in SODIUM CHLORIDE 0.9% 99 ML IV SCH (19:14)
[2020-07-17 19:25] VITALS: BP 133/73
[2020-07-17 19:46] LABS: AMPHETAMINE SCREEN, URINE Negative (Negative); BARBITURATE SCREEN, URINE Negative (Negative); BENZODIAZEPINE SCREEN, URINE Negative (Negative); CANNABINOID SCREEN, URINE Negative (Negative); COCAINE SCREEN, URINE Negative (Negative); METHADONE SCREEN, URINE Negative (Negative); OPIATE SCREEN, URINE Positive (Negative)
[2020-07-17 19:56] LABS: MICROSCOPIC AUTO
[2020-07-17] MEDS: THIAMINE 200 MG, MVI ADULT 10 ML, FOLIC ACID 1 MG in D5%-0.9% NACL 1,000 ML IV SCH (20:41)
[2020-07-17] MEDS: ZIPRASIDONE 40MG CAPSULE PO SCH (20:42)
[2020-07-17] MEDS: LACTULOSE 10 GM/15 ML UDC PO SCH (20:55)
[2020-07-18 01:10] VITALS: BP 119/63
[2020-07-18] MEDS: OCTREOTIDE 500 MCG in SODIUM CHLORIDE 0.9% 99 ML IV SCH (04:18)
[2020-07-18] MEDS: PANTOPRAZOLE 80 MG in SODIUM CHLORIDE 0.9% 100 ML IV SCH (04:18)
[2020-07-18] MEDS: LEVOTHYROXINE 25 MCG TABLET PO SCH (05:09)
[2020-07-18 05:44] LABS: ALANINE AMINOTRANSFERASE 47 U/L (12-78); ALBUMIN 3.4 g/dL (3.4-5.0); ANION GAP 5 mmol/L (5-15); CHLORIDE 104 mmol/L (98-107); CREATININE 0.93 mg/dL (0.55-1.02)
[2020-07-18 05:46] LABS: ALKALINE PHOSPHATASE 114 U/L (45-117); BILIRUBIN,TOTAL 1.7 mg/dL (0.2-1.0); TOTAL PROTEIN 7.4 g/dL (6.4-8.2)
[2020-07-18 05:53] LABS: MEAN CORPUSCULAR HEMOGLOBIN 30.6 pg (27.0-34.8); MEAN CORPUSCULAR HGB CONC 33.2 g/dL (32.4-35.8); MEAN CORPUSCULAR VOLUME 92.2 fL (80-100); RED BLOOD COUNT 4.79 x10^6/uL (3.82-5.3); RED CELL DISTRIBUTION WIDTH 14.7 % (9.6-15.2)
[2020-07-18 06:20] VITALS: BP 123/70
[2020-07-18 06:23] LABS: MEAN PLATELET VOLUME 7.3 fL (7.4-10.4); PLATELET COUNT 153 x10^3/uL (130-400)
[2020-07-18 06:24] LABS: BASOPHILS # (AUTO) 0.09 x10^3/uL (0-0.1); BASOPHILS % (AUTO) 1 % (0-1); EOSINOPHILS # (AUTO) 0.05 x10^3/uL (0-0.4); EOSINOPHILS % (AUTO) 1 % (1-7); LYMPHOCYTES # (AUTO) 3.42 x10^3/uL (1-3.4); LYMPHOCYTES % (AUTO) 31 % (22-44); MD SCAN; MONOCYTES # (AUTO) 0.52 x10^3/uL (0.2-0.8); MONOCYTES % (AUTO) 5 % (2-9); NEUTROPHILS # (AUTO) 7.12 x10^3/uL (1.8-6.8); NEUTROPHILS % (AUTO) 64 % (42-75)
[2020-07-18] MEDS ORDERED: CHLORHEXIDINE 15 ML UDC ONE (08:19)
[2020-07-18] MEDS ORDERED: CEFTRIAXONE PMX 1GM/50ML 50 ML IV SCH (09:00)
[2020-07-18] MEDS ORDERED: PROPOFOL 10 MG/ML, 20ML ONE (09:24)
[2020-07-18] MEDS ORDERED: SUCCINYLCHOLINE 20 MG/ML, 10ML ONE (09:24)
[2020-07-18] MEDS: LACTULOSE 10 GM/15 ML UDC PO SCH ×2 (11:01→21:30)
[2020-07-18] MEDS: SPIRONOLACTONE 100 MG TABLET PO SCH (11:02)
[2020-07-18] MEDS: FOLIC ACID 1 MG TABLET PO SCH (11:02)
[2020-07-18] MEDS: FUROSEMIDE 80 MG TABLET PO SCH (11:02)
[2020-07-18] MEDS: CYANOCOBALAMIN 1,000 MCG TABLET PO SCH (11:03)
[2020-07-18] MEDS: MAGNESIUM OXIDE 400 MG TABLET PO SCH (11:03)
[2020-07-18] MEDS: ZIPRASIDONE 40MG CAPSULE PO SCH ×2 (11:34→21:30)
[2020-07-18 12:45] VITALS: BP 113/72
[2020-07-18] MEDS ORDERED: ERGOCALCIFEROL 50,000 UNIT CAPSULE PO SCH (14:00)
[2020-07-18] MEDS: THIAMINE 200 MG, MVI ADULT 10 ML, FOLIC ACID 1 MG in D5%-0.9% NACL 1,000 ML IV SCH (17:19)
[2020-07-18 19:36] VITALS: BP 146/79
[2020-07-18 20:29] VITALS: BP 115/69
[2020-07-18] MEDS ORDERED: ZIPRASIDONE 20MG CAPSULE ONE (21:18)
[2020-07-19 01:02] VITALS: BP 109/64
[2020-07-19] MEDS: LEVOTHYROXINE 25 MCG TABLET PO SCH (05:34)
[2020-07-19 05:45] LABS: ALBUMIN 3.3 g/dL (3.4-5.0); ANION GAP 5 mmol/L (5-15); CALCIUM 8.6 mg/dL (8.5-10.1); CHLORIDE 100 mmol/L (98-107)
[2020-07-19 05:48] LABS: BASOPHILS # (AUTO) 0.03 x10^3/uL (0-0.1); BASOPHILS % (AUTO) 0 % (0-1); EOSINOPHILS # (AUTO) 0.13 x10^3/uL (0-0.4); EOSINOPHILS % (AUTO) 1 % (1-7); LYMPHOCYTES # (AUTO) 3.69 x10^3/uL (1-3.4); LYMPHOCYTES % (AUTO) 26 % (22-44); MD NO; MEAN CORPUSCULAR HEMOGLOBIN 30.8 pg (27.0-34.8); MEAN CORPUSCULAR HGB CONC 32.9 g/dL (32.4-35.8); MEAN CORPUSCULAR VOLUME 93.7 fL (80-100); MEAN PLATELET VOLUME 7.8 fL (7.4-10.4); MONOCYTES # (AUTO) 0.74 x10^3/uL (0.2-0.8); MONOCYTES % (AUTO) 5 % (2-9); NEUTROPHILS # (AUTO) 9.38 x10^3/uL (1.8-6.8); NEUTROPHILS % (AUTO) 67 % (42-75); PLATELET COUNT 163 x10^3/uL (130-400); RED CELL DISTRIBUTION WIDTH 14.3 % (9.6-15.2)
[2020-07-19 05:50] LABS: ALANINE AMINOTRANSFERASE 41 U/L (12-78); ALKALINE PHOSPHATASE 109 U/L (45-117); BILIRUBIN,TOTAL 1.5 mg/dL (0.2-1.0); CREATININE 0.81 mg/dL (0.55-1.02); TOTAL PROTEIN 7.2 g/dL (6.4-8.2)
[2020-07-19] MEDS ORDERED: OMEPRAZOLE 20 MG CAPSULE.DR PO SCH (06:00)
[2020-07-19] MEDS ORDERED: POTASSIUM CHLORIDE 20 MEQ TAB.ER.PRT PO ONE (07:00)
[2020-07-19 07:31] VITALS: BP 115/72
[2020-07-19] MEDS ORDERED: ZIPRASIDONE 20MG CAPSULE ONE (08:40)
[2020-07-19] MEDS: CYANOCOBALAMIN 1,000 MCG TABLET PO SCH (08:43)
[2020-07-19] MEDS: SPIRONOLACTONE 100 MG TABLET PO SCH (08:43)
[2020-07-19] MEDS: FOLIC ACID 1 MG TABLET PO SCH (08:43)
[2020-07-19] MEDS: FUROSEMIDE 80 MG TABLET PO SCH (08:43)
[2020-07-19] MEDS: MAGNESIUM OXIDE 400 MG TABLET PO SCH (08:43)
[2020-07-19] MEDS ORDERED: CEFTRIAXONE PMX 1GM/50ML 50 ML IV ONE (09:00)
[2020-07-19] MEDS: LACTULOSE 10 GM/15 ML UDC PO SCH (09:00)
[2020-07-19] MEDS ORDERED: CHLORDIAZEPOXIDE 25 MG CAPSULE PO SCH (09:00)
[2020-07-19] MEDS: ZIPRASIDONE 40MG CAPSULE PO SCH (09:10)
[2020-07-19] MEDS ORDERED: CHLO25CA9 PO (11:17)
[2020-07-19 13:05] VITALS: BP 130/82
[2020-07-19] MEDS ORDERED: OMEP40CA42 PO (14:29)
== END 2020-07-19 15:08 | disposition home or self-care (01) | DRG 378 ==
LOC: ED 10:16 → EDIP 13:28 → 5SO 16:43 → 4EST 07-18 20:23
PROVIDERS: ADMIT Family Medicine; ATTEND Family Medicine
PROC: 0DJ08ZZ Inspection of Upper Intestinal Tract, Via Natural or Artificial Opening Endoscopic (ICD-10-PCS; principal; 2020-07-18 09:00)
DX: K92.2 Gastrointestinal hemorrhage, unspecified (principal); N39.0 Urinary tract infection, site not specified; K76.6 Portal hypertension; F10.239 Alcohol dependence with withdrawal, unspecified; R65.10 Systemic inflammatory response syndrome (SIRS) of non-infectious origin without acute organ dysfunction; F10.229 Alcohol dependence with intoxication, unspecified; I10 Essential (primary) hypertension; J44.9 Chronic obstructive pulmonary disease, unspecified; K22.2 Esophageal obstruction; K31.89 Other diseases of stomach and duodenum; K70.30 Alcoholic cirrhosis of liver without ascites; Z72.0 Tobacco use; Z20.828 Contact with and (suspected) exposure to other viral communicable diseases
CPT/HCPCS: 36415; J7042; 70450; 71046; 76700; 80053; 80307; 81001; 83690; 83735; 85025; 85610; 86850; 86900; 87086; 87635; 93005; G0378; J0696; J2354; J2405; J2704; J3411; Q0162; C9113; J0330; J2060; J2270; J7030

== ENCOUNTER 2020-11-30 14:33 | Emergency (ER) | payer MEDICAID, MEDICARE ==
[~2020-11-30] VITALS: Ht 162.6 cm; Wt 75.0 kg
[~2020-11-30 14:33] MED LIST changes: +CHLO25CA9 PO; +OMEP40CA42 PO
--- NOTE | 2020-11-30 14:57 | NUR ---
patient states history of cirrhosis of liver, and was hospitalized here prior. is here today for abdominal pain. she has been sober for 3 years.
--- NOTE | 2020-11-30 15:19 | NUR ---
PATIENT IN RESTROOM AND LAB WAITING TO DRAW LABS
[2020-11-30 15:43] LABS: MICROSCOPIC INDICATED
[2020-11-30 15:52] LABS: ALANINE AMINOTRANSFERASE 21 U/L (12-78); ALBUMIN 3.5 g/dL (3.4-5.0); ANION GAP 5 mmol/L (5-15); CHLORIDE 106 mmol/L (98-107); CREATININE 1.18 mg/dL (0.55-1.02)
[2020-11-30 15:54] LABS: ALKALINE PHOSPHATASE 112 U/L (45-117); BILIRUBIN,TOTAL 0.8 mg/dL (0.2-1.0)
[2020-11-30 16:21] LABS: MEAN CORPUSCULAR HEMOGLOBIN 31.3 pg (27.0-34.8); MEAN CORPUSCULAR HGB CONC 34.6 g/dL (32.4-35.8); MEAN PLATELET VOLUME 8.6 fL (7.4-10.4); PLATELET COUNT 221 x10^3/uL (130-400); RED BLOOD COUNT 4.79 x10^6/uL (3.82-5.3); RED CELL DISTRIBUTION WIDTH 14.2 % (9.6-15.2)
[2020-11-30 16:22] LABS: MD YES
[2020-11-30 17:09] LABS: BAND#(MANUAL) 0.28 x10^3/uL; BANDS%(MANUAL) 2 % (0-7); LYMPHS% (MANUAL) 31 % (22-44); MONOS#(MANUAL) 0.71 x10^3/uL (0.3-2.7); MONOS% (MANUAL) 5 % (2-9); SEGS% (MANUAL) 62 % (42-75)
[2020-11-30 17:10] LABS: <PLATELET ESTIMATE> ADEQUATE; <PLT MORPHOLOGY> NORMAL PLT MORPH; <RBC MORPHOLOGY> NORMAL
[2020-11-30 17:42] VITALS: BP 105/78
== END 2020-11-30 17:44 | disposition home or self-care (01) ==
LOC: ED 15:44
DX: K63.89 Other specified diseases of intestine (principal); I10 Essential (primary) hypertension; J44.9 Chronic obstructive pulmonary disease, unspecified; F17.200 Nicotine dependence, unspecified, uncomplicated
CPT/HCPCS: 36415; 74176; 80053; 81001; 83690; 85025; 99284; 99285

== ENCOUNTER 2021-05-05 10:11 | Emergency (ER) | payer MEDICARE, MEDICAID ==
[~2021-05-05] VITALS: Ht 160 cm; Wt 72.3 kg
[~2021-05-05 10:11] MED LIST changes: -FOLI-17 PO; +FOLI1TAB32 PO; -OMEP40CA42 PO; +OMEP40CA8 PO
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
[2021-05-05 11:06] VITALS: BP 121/76
--- NOTE | 2021-05-05 11:41 | NUR ---
Patient given discharge instructions and they have confirmed that they understand the instructions. Patient ambulatory with steady gait.
== END 2021-05-05 11:41 | disposition home or self-care (01) ==
LOC: ED 11:30
DX: L03.211 Cellulitis of face (principal); L03.114 Cellulitis of left upper limb; L03.113 Cellulitis of right upper limb; F17.210 Nicotine dependence, cigarettes, uncomplicated
CPT/HCPCS: 99283

== ENCOUNTER 2021-06-19 15:18 | Emergency (ER) | payer MEDICARE, MEDICAID ==
[~2021-06-19] VITALS: Ht 160 cm; Wt 74.2 kg
[2021-06-19 15:22] VITALS: BP 137/65
--- NOTE | 2021-06-19 17:00 | NUR ---
No new orders.
[2021-06-19] MEDS ORDERED: KETOROLAC 60 MG/2 ML ONE (17:16)
[2021-06-19] MEDS ORDERED: KETOROLAC 30 MG/1 ML IM ONE (17:30)
== END 2021-06-19 17:25 | disposition home or self-care (01) ==
LOC: ED 15:30
DX: S39.012A Strain of muscle, fascia and tendon of lower back, initial encounter (principal); M51.36 Other intervertebral disc degeneration, lumbar region; G89.29 Other chronic pain; I10 Essential (primary) hypertension; J44.9 Chronic obstructive pulmonary disease, unspecified; X58.XXXA Exposure to other specified factors, initial encounter; Y93.89 Activity, other specified; Y92.89 Other specified places as the place of occurrence of the external cause; Y99.8 Other external cause status
CPT/HCPCS: 72110; 96372; 99283; J1885

== ENCOUNTER 2021-07-01 10:46 | Emergency (ER) | payer MEDICARE, MEDICAID ==
[~2021-07-01] VITALS: Ht 160 cm; Wt 74.9 kg
[2021-07-01 10:50] VITALS: BP 112/74
[2021-07-01] MEDS ORDERED: KETOROLAC 30 MG/1 ML ONE (11:22)
[2021-07-01] MEDS ORDERED: METHOCARBAMOL 750 MG TABLET ONE (11:22)
--- NOTE | 2021-07-01 11:52 | NUR ---
Patient given discharge instructions and Rx, they have confirmed that they understand the instructions. Patient ambulatory with steady gait. NAD, all questions answered appropriately, denies additional needs at this time. No personal belongings left in room after discharge.
[2021-07-01] MEDS ORDERED: METHOCARBAMOL 750 MG TABLET PO ONE (12:30)
[2021-07-01] MEDS ORDERED: KETOROLAC 30 MG/1 ML IM ONE (12:30)
== END 2021-07-01 11:53 | disposition home or self-care (01) ==
LOC: ED 10:49
DX: S39.012A Strain of muscle, fascia and tendon of lower back, initial encounter (principal); M51.36 Other intervertebral disc degeneration, lumbar region; I10 Essential (primary) hypertension; J44.9 Chronic obstructive pulmonary disease, unspecified; F17.200 Nicotine dependence, unspecified, uncomplicated; X50.0XXA Overexertion from strenuous movement or load, initial encounter; Y93.89 Activity, other specified; Y92.89 Other specified places as the place of occurrence of the external cause; Y99.8 Other external cause status
CPT/HCPCS: 96372; 99283; J1885